=== PATIENT | female | born 1945 | race Caucasian/White ===

== ENCOUNTER → 2017-08-31 17:46 | Outpatient (CLI) | payer MEDICARE, OTHER ==
[2013-01-14 08:21] VITALS: BMI 26.5
== END | disposition home or self-care (01) ==
LOC: D.MAMMO 10:15
DX: Z12.31 Encounter for screening mammogram for malignant neoplasm of breast (principal)

== ENCOUNTER 2018-04-02 12:09 | Emergency (ER) | payer MEDICARE, OTHER ==
[2018-04-02 12:18] VITALS: Ht 162.6 cm
[2018-04-02 12:50] LABS: BASOPHILS 0.2 % (0-2); EOSINOPHILS 0.8 % (0-7); HEMATOCRIT 35.7 % (36.0-48.0); HEMOGLOBIN 11.8 g/dL (12-16); IMMATURE GRANULOCYTES 0.3 % (0-5); LYMPHOCYTES 20.3 % (15-50); MCHC 33.1 g/dL (31.0-37.0); MCV 87.7 fL (80.0-100.0); MEAN PLATELET VOLUME 11.3 fL (7.4-10.4); MONOCYTES 5.8 % (2-11); NEUTROPHILS 72.6 % (40-80); PLATELET COUNT 193 10x3/uL (130-400); RBC 4.07 10x6/uL (4.00-5.40); RDW 14.4 % (11.5-14.5); WBC 6.3 10x3/uL (4.8-10.8)
[2018-04-02 12:54] LABS: INR 2.31 (0.85-1.17); PROTIME 24.7 SECONDS (11.6-15.0)
[2018-04-02 13:01] LABS: ALBUMIN 3.7 g/dL (3.4-5.0); ALKALINE PHOSPHATASE 58 U/L (46-116); ALT (SGPT) 20 U/L (10-68); CALC OSMOLALITY 272 mosm/kg (275-300); CARBON DIOXIDE 26.3 mmol/L (21.0-32.0); CHLORIDE - SERUM 99 mmol/L (98-107); CREATININE - SERUM 0.9 mg/dL (0.6-1.3); GLUCOSE 130 mg/dL (74-106); POTASSIUM - SERUM 3.7 mmol/L (3.5-5.1); PROTEIN - SERUM 7.4 g/dL (6.4-8.2); SODIUM 134 mmol/L (136-145); UREA NITROGEN 20 mg/dL (7-18); eGFR NON AFRICAN AMERICAN 65 mL/min (90-120)
[2018-04-02 13:12] LABS: CREATINE KINASE 73 UL (21-215)
[2018-04-02 13:14] LABS: TROPONIN-I < 0.017 ng/mL (0.000-0.060)
[2018-04-02 14:02] LABS: APPEARANCE CLEAR (CLEAR); BILIRUBIN NEGATIVE (NEGATIVE); COLOR STRAW (YELLOW); GLUCOSE NEGATIVE (NEGATIVE); KETONE NEGATIVE (NEGATIVE); NITRITE NEGATIVE (NEGATIVE); PROTEIN NEGATIVE (NEGATIVE); UROBILINOGEN NORMAL (NORMAL)
[2018-04-02 14:43] VITALS: BP 141/77
== END 2018-04-02 14:43 | disposition home or self-care (01) ==
LOC: D.ER 12:09
PROVIDERS: Family Medicine
DX: R42 Dizziness and giddiness (principal); M54.5 Low back pain; M54.30 Sciatica, unspecified side; E11.9 Type 2 diabetes mellitus without complications; I10 Essential (primary) hypertension

== ENCOUNTER → 2018-09-06 17:51 | Outpatient (CLI) | payer MEDICARE, OTHER ==
[2018-04-02 12:18] VITALS: BMI 26.5
== END | disposition home or self-care (01) ==
LOC: D.MAMMO 09:30
DX: Z12.31 Encounter for screening mammogram for malignant neoplasm of breast (principal)

== ENCOUNTER 2019-06-27 17:35 | Inpatient (IN) | payer MEDICARE, OTHER ==
[~2019-06-27] VITALS: Ht 162.6 cm; Wt 63.6 kg
[2019-06-27 18:20] LABS: BASOPHILS 0.2 % (0-2); EOSINOPHILS 0.7 % (0-7); HEMATOCRIT 36.5 % (36.0-48.0); IMMATURE GRANULOCYTES 0.2 % (0-5); LYMPHOCYTES 23.8 % (15-50); MCH 26.4 pg (26.0-34.0); MCHC 30.1 g/dL (31.0-37.0); MCV 87.7 fL (80.0-100.0); MEAN PLATELET VOLUME 11.6 fL (7.4-10.4); MONOCYTES 6.2 % (2-11); NEUTROPHILS 68.9 % (40-80); RBC 4.16 10x6/uL (4.00-5.40); RDW 20.8 % (11.5-14.5); WBC 5.5 10x3/uL (4.8-10.8)
[2019-06-27 18:22] LABS: PLATELET COUNT 282 10x3/uL (130-400)
[2019-06-27 18:35] LABS: ALBUMIN 3.2 g/dL (3.4-5.0); ALKALINE PHOSPHATASE 57 U/L (46-116); ALT (SGPT) 29 U/L (10-68); APTT 29.4 SECONDS (22.8-39.4); BILIRUBIN - TOTAL 0.65 mg/dL (0.2-1.3); CALC OSMOLALITY 308 mosm/kg (275-300); CARBON DIOXIDE 19.5 mmol/L (21.0-32.0); CHLORIDE - SERUM 105 mmol/L (98-107); CREATININE - SERUM 2.5 mg/dL (0.6-1.3); INR 1.13 (0.85-1.17); POTASSIUM - SERUM 4.1 mmol/L (3.5-5.1); PROTEIN - SERUM 6.7 g/dL (6.4-8.2); SODIUM 139 mmol/L (136-145); UREA NITROGEN 82 mg/dL (7-18); eGFR NON AFRICAN AMERICAN 20 mL/min (90-120)
[2019-06-27 18:36] LABS: D-DIMER-QUANTITATIVE 1.42 ug/mLFEU (0.20-0.54); GLUCOSE 208 mg/dL (74-106)
[2019-06-27 18:47] LABS: CKMB 1.3 U/L (0.0-3.6); CREATINE KINASE 29 UL (21-215); TROPONIN-I 0.044 ng/mL (0.000-0.060)
[2019-06-27 19:02] LABS: PRO BNP 69785 pg/mL (0-450)
[2019-06-27 19:07] VITALS: BP 102/68
[2019-06-27 23:09] VITALS: BP 89/55; BMI 24.0
[2019-06-27] MEDS ORDERED: BETAPACE 120 M120 MG PO (23:30)
[2019-06-27] MEDS ORDERED: WARFARIN SODIUM 5 MG (23:41)
[2019-06-27] MEDS ORDERED: PRAVASTATIN SOD10 MG (23:42)
[2019-06-28] VITALS: BP 89/55
[2019-06-28 04:00] VITALS: BP 133/66; BP 82/52
[2019-06-28 05:06] LABS: BASOPHILS 0.4 % (0-2); EOSINOPHILS 0.2 % (0-7); HEMATOCRIT 34.3 % (36.0-48.0); HEMOGLOBIN 10.3 g/dL (12-16); IMMATURE GRANULOCYTES 0.2 % (0-5); LYMPHOCYTES 27.7 % (15-50); MCH 26.5 pg (26.0-34.0); MCV 88.2 fL (80.0-100.0); MEAN PLATELET VOLUME 11.7 fL (7.4-10.4); MONOCYTES 7.1 % (2-11); NEUTROPHILS 64.4 % (40-80); PLATELET COUNT 252 10x3/uL (130-400); RBC 3.89 10x6/uL (4.00-5.40); RDW 21.1 % (11.5-14.5); WBC 5.1 10x3/uL (4.8-10.8)
[2019-06-28 05:17] LABS: CALCIUM 8.6 mg/dL (8.5-10.1); CARBON DIOXIDE 17.8 mmol/L (21.0-32.0); CREATININE - SERUM 2.4 mg/dL (0.6-1.3); MAGNESIUM - SERUM 2.6 mg/dL (1.8-2.4); PHOSPHOROUS 5.2 mg/dL (2.5-4.9); POTASSIUM - SERUM 3.8 mmol/L (3.5-5.1)
[2019-06-28 09:59] VITALS: BP 81/56
[2019-06-28 12:47] VITALS: BMI 24.0
[2019-06-28 15:09] VITALS: BP 82/55
[2019-06-28 16:00] VITALS: BP 91/57
--- NOTE | 2019-06-28 16:22 | MORECARE ---
CASE MANAGEMENT DISCHARGE SUMMARY PATIENT: JAMIE AUGUSTIN UNIT: [id number] ADM DATE: 06/27/19 AGE: 74 : 43 SEX: F ROOM/BED: D.3020 AUTHOR: FERNANDO PRATT PHYSICIAN: REFERRING PHYSICIAN: JEWELL BAÑUELOS MD DATE OF SERVICE: 06/28/19 Discharge Plan Patient Name: JAMIE AUGUSTIN Facility: [facility]:[place] : 1945 Planned Disposition: Anticipated Discharge Date: Discharge Date: Expected LOS: Initial Reviewer: [email or web address] Initial Review Date: 06/28/2019 Generated: 06/28/19 5:21 pm Patient Name: JAMIE AUGUSTIN Page [id number] at 1622 All edits/amendments must be made on the electronic document DICTATION DATE: 06/28/191620 LITIGATION LEGAL SECRETARY: FERNANDO 06/28/191620 RPT#: [id number] DC DATE: STATUS: ADM IN [facility] [address] [place] [address] END OF REPORT
--- NOTE | 2019-06-28 16:30 | MORECARE ---
CASE MANAGEMENT DISCHARGE SUMMARY PATIENT: JAMIE AUGUSTIN UNIT: [id number] ADM DATE: 06/27/19 AGE: 74 : 43 SEX: F ROOM/BED: D.4220 AUTHOR: FERNANDO PRATT PHYSICIAN: REFERRING PHYSICIAN: JEWELL BAÑUELOS MD DATE OF SERVICE: 06/28/19 Discharge Plan Patient Name: JAMIE AUGUSTIN Facility: [facility]:[place] : 1945 Planned Disposition: Anticipated Discharge Date: Discharge Date: Expected LOS: Initial Reviewer: [email or web address] Initial Review Date: 06/28/2019 Generated: 06/28/19 5:29 pm Comments DCP- Discharge Planning Updated by [email or web address]: Vanessa Dubose on 06/28/19 3:[address] Patient Name: JAMIE AUGUSTIN Admission Status: ER Accout number: [id number] Admission Date: 06-27-2019 : 1945 Admission Diagnosis: Attending: JEWELL BAÑUELOS Current LOS: 1 Anticipated DC Date: Planned Disposition: Primary Insurance: MEDICARE A & B Discharge Planning Comments: CM MET WITH PATIENT ABOUT DC PLANNING/NEEDS. NO NEEDS IDENTIFIED OF TODAY BUT WILL RECHECK PATIENT CLOSER TO DISCHARGE. CM WILL FOLLOW AND ASSIST. R&D Engineer: Vanessa Dubose DCPIA - Discharge Planning Initial Assessment Updated by [email or web address]: Vanessa Dubose on 06/28/19 4:22 pm * Is the patient Alert and Oriented? Yes * PCP BRENDA * Pharmacy [facility] [address] * Preadmission Environment Home Alone * ADLs Independent * List name and contact numbers for known caregivers / representatives who currently or will assist patient after discharge: JUSTICE CRUMP, * Community resources currently utilized None * Additional services required to return to the preadmission environment? No * Can the patient safely return to the preadmission environment? Yes * Has this patient been hospitalized within the prior 30 days at any hospital? Yes Last DP export: 06/28/19 3:22 Patient Name: JAMIE AUGUSTIN Page [id number] at 1630 All edits/amendments must be made on the electronic document DICTATION DATE: 06/28/191628 MAIL WEIGHER: FERNANDO 06/28/191628 RPT#: [id number] DC DATE: STATUS: ADM IN [facility] [address] [place] [address] END OF REPORT
[2019-06-28 20:00] VITALS: BP 83/59
[2019-06-29] VITALS (7 sets, daily range): BP systolic 79–106; BP diastolic 37–67
[2019-06-29 04:49] LABS: BASOPHILS 0.5 % (0-2); EOSINOPHILS 1.2 % (0-7); HEMATOCRIT 35.3 % (36.0-48.0); HEMOGLOBIN 10.5 g/dL (12-16); IMMATURE GRANULOCYTES 0.3 % (0-5); LYMPHOCYTES 28.5 % (15-50); MCH 26.7 pg (26.0-34.0); MCHC 29.7 g/dL (31.0-37.0); MCV 89.8 fL (80.0-100.0); MEAN PLATELET VOLUME 11.4 fL (7.4-10.4); NEUTROPHILS 61.5 % (40-80); PLATELET COUNT 281 10x3/uL (130-400); RBC 3.93 10x6/uL (4.00-5.40); RDW 21.4 % (11.5-14.5)
[2019-06-29 04:58] LABS: WBC 6.6 10x3/uL (4.8-10.8)
[2019-06-29 05:07] LABS: ANION GAP 15.4 mmol/L (8-16); CALCIUM 8.6 mg/dL (8.5-10.1); CARBON DIOXIDE 18.9 mmol/L (21.0-32.0); MAGNESIUM - SERUM 2.7 mg/dL (1.8-2.4); POTASSIUM - SERUM 4.3 mmol/L (3.5-5.1)
[2019-06-29 05:14] LABS: CREATININE - SERUM 3.1 mg/dL (0.6-1.3)
[2019-06-30 04:00] VITALS: BP 85/52
[2019-06-30 05:17] LABS: BASOPHILS 0.7 % (0-2); EOSINOPHILS 1.5 % (0-7); HEMOGLOBIN 10.6 g/dL (12-16); IMMATURE GRANULOCYTES 0.3 % (0-5); LYMPHOCYTES 27.8 % (15-50); MCH 26.4 pg (26.0-34.0); MCHC 29.4 g/dL (31.0-37.0); MCV 89.6 fL (80.0-100.0); MEAN PLATELET VOLUME 11.5 fL (7.4-10.4); MONOCYTES 8.1 % (2-11); NEUTROPHILS 61.6 % (40-80); PLATELET COUNT 295 10x3/uL (130-400); RBC 4.02 10x6/uL (4.00-5.40); RDW 21.8 % (11.5-14.5)
[2019-06-30 05:32] LABS: ANION GAP 12.8 mmol/L (8-16); CALCIUM 8.2 mg/dL (8.5-10.1); CARBON DIOXIDE 19.4 mmol/L (21.0-32.0); CREATININE - SERUM 3.1 mg/dL (0.6-1.3); MAGNESIUM - SERUM 2.5 mg/dL (1.8-2.4); POTASSIUM - SERUM 4.2 mmol/L (3.5-5.1)
[2019-06-30 08:56] VITALS: BP 99/67
[2019-06-30 15:53] VITALS: Ht 162.6 cm; Wt 63.6 kg
--- NOTE | 2019-06-30 16:28 | MORECARE ---
CASE MANAGEMENT DISCHARGE SUMMARY PATIENT: JAMIE AUGUSTIN UNIT: [id number] ADM DATE: 06/27/19 AGE: 74 : 43 SEX: F ROOM/BED: D.0899 AUTHOR: TERENCE,DOC PHYSICIAN: REFERRING PHYSICIAN: JEWELL BAÑUELOS MD DATE OF SERVICE: 06/30/19 Discharge Plan Patient Name: JAMIE AUGUSTIN Facility: [facility]:[place] : 1945 Planned Disposition: Anticipated Discharge Date: Discharge Date: Expected LOS: Initial Reviewer: [email or web address] Initial Review Date: 06/28/2019 Generated: 06/30/19 5:28 pm Comments DCP- Discharge Planning Updated by [email or web address]: Becky Ro on 06/30/19 3:[address] CM received an order from nurse on [employer] 2 for patient transfer to [facility]. CM called the [facility], spoke with Craig, provided required information and faxed Face Sheet to #[phone]. Instructed Craig to contact Med 2 @[phone] with determination. DCP- Discharge Planning Updated by [email or web address]: Vanessa Dubose on 06/28/19 3:[address] Patient Name: JAMIE AUGUSTIN Admission Status: ER Accout number: [id number] Admission Date: 06-27-2019 : 1945 Admission Diagnosis: Attending: JEWELL BAÑUELOS Current LOS: 1 Anticipated DC Date: Planned Disposition: Primary Insurance: MEDICARE A & B Discharge Planning Comments: CM MET WITH PATIENT ABOUT DC PLANNING/NEEDS. NO NEEDS IDENTIFIED OF TODAY BUT WILL RECHECK PATIENT CLOSER TO DISCHARGE. CM WILL FOLLOW AND ASSIST. Electric Motor Assembler: Vanessa Dubose DCPIA - Discharge Planning Initial Assessment Updated by [email or web address]: Vanessa Dubose on 06/28/19 4:22 pm * Is the patient Alert and Oriented? Yes * PCP BRENDA * Pharmacy [facility] [address] * Preadmission Environment Home Alone * ADLs Independent * List name and contact numbers for known caregivers / representatives who currently or will assist patient after discharge: JUSTICE CRUMP, * Community resources currently utilized None * Additional services required to return to the preadmission environment? No * Can the patient safely return to the preadmission environment? Yes * Has this patient been hospitalized within the prior 30 days at any hospital? Yes Last DP export: 06/28/19 3:30 Patient Name: JAMIE AUGUSTIN Page [id number] at 1628 All edits/amendments must be made on the electronic document DICTATION DATE: 06/30/191627 ADVISORY SERVICES ASSOCIATE: FERNANDO 06/30/191627 RPT#: [id number] DC DATE: STATUS: ADM IN [facility] [address] [place] [address] END OF REPORT
--- NOTE | 2019-06-30 16:53 | MORECARE ---
CASE MANAGEMENT DISCHARGE SUMMARY PATIENT: JAMIE AUGUSTIN UNIT: [id number] ADM DATE: 06/27/19 AGE: 74 : 43 SEX: F ROOM/BED: D.4536 AUTHOR: TERENCE,DOC PHYSICIAN: REFERRING PHYSICIAN: JEWELL BAÑUELOS MD DATE OF SERVICE: 06/30/19 Discharge Plan Patient Name: JAMIE AUGUSTIN Facility: [facility]:[place] : 1945 Planned Disposition: Anticipated Discharge Date: Discharge Date: Expected LOS: Initial Reviewer: [email or web address] Initial Review Date: 06/28/2019 Generated: 06/30/19 5:53 pm Comments DCP- Discharge Planning Updated by [email or web address]: Becky Ro on 06/30/19 3:[address] CM received an order from nurse on [employer] 2 for patient transfer to [facility]. CM called the [facility] Transfer [facility], spoke with Craig, provided required information, plus Dr. Coppola name and faxed Face Sheet to #[phone]. Instructed Craig to contact Med 2 @[phone] with determination. DCP- Discharge Planning Updated by [email or web address]: Vanessa Dubose on 06/28/19 3:[address] Patient Name: JAMIE AUGUSTIN Admission Status: ER Accout number: [id number] Admission Date: 06-27-2019 : 1945 Admission Diagnosis: Attending: JEWELL BAÑULEOS Current LOS: 1 Anticipated DC Date: Planned Disposition: Primary Insurance: MEDICARE A & B Discharge Planning Comments: CM MET WITH PATIENT ABOUT DC PLANNING/NEEDS. NO NEEDS IDENTIFIED OF TODAY BUT WILL RECHECK PATIENT CLOSER TO DISCHARGE. CM WILL FOLLOW AND ASSIST. Product Marketer: Vanessa Dubose DCPIA - Discharge Planning Initial Assessment Updated by [email or web address]: Vanessa Dubose on 06/28/19 4:22 pm * Is the patient Alert and Oriented? Yes * PCP BRENDA * Pharmacy [facility] [address] * Preadmission Environment Home Alone * ADLs Independent * List name and contact numbers for known caregivers / representatives who currently or will assist patient after discharge: THERON, JUSTICE, * Community resources currently utilized None * Additional services required to return to the preadmission environment? No * Can the patient safely return to the preadmission environment? Yes * Has this patient been hospitalized within the prior 30 days at any hospital? Yes Last DP export: 06/30/19 3:28 Patient Name: JAMIE AUGUSTIN Page [id number] at 1653 All edits/amendments must be made on the electronic document DICTATION DATE: 06/30/191652 CHARGEMASTER ANALYST: FERNANDO 06/30/191652 RPT#: [id number] DC DATE: STATUS: ADM IN [facility] [address] [place] [address] END OF REPORT
[2019-06-30] MEDS ORDERED: XARELTO15 MG PO (18:13)
[2019-06-30 18:18] VITALS: BP 105/99
--- NOTE | 2019-07-01 08:10 | MORECARE ---
CASE MANAGEMENT DISCHARGE SUMMARY PATIENT: JAMIE AUGUSTIN UNIT: [id number] ADM DATE: 06/27/19 AGE: 74 : 43 SEX: F ROOM/BED: D.5724 AUTHOR: TERENCE,DOC PHYSICIAN: REFERRING PHYSICIAN: JEWELL BAÑUELOS MD DATE OF SERVICE: 07/01/19 Discharge Plan Patient Name: JAIME AUGUSTIN Facility: [facility]:[place] : 1945 Planned Disposition: Acute Care Hospital Anticipated Discharge Date: 06/30/19 Discharge Date: 06/30/2019 Expected LOS: 3 Initial Reviewer: [email or web address] Initial Review Date: 06/28/2019 Generated: 07/01/19 9:10 am Comments DCP- Discharge Planning Updated by [email or web address]: Becky Ro on 06/30/19 3:[address] CM received an order from nurse on [employer] 2 for patient transfer to [facility]. CM called the [facility], spoke with Craig, provided required information, plus Dr. Coppola name and faxed Face Sheet to #[phone]. Instructed Craig to contact Med 2 @[phone] with determination. DCP- Discharge Planning Updated by [email or web address]: Vanessa Dubose on 06/28/19 3:[address] Patient Name: JAMIE AUGUSTIN Admission Status: ER Accout number: [id number] Admission Date: 06-27-2019 : 1945 Admission Diagnosis: Attending: JEWELL BAÑUELOS Current LOS: 1 Anticipated DC Date: Planned Disposition: Primary Insurance: MEDICARE A & B Discharge Planning Comments: CM MET WITH PATIENT ABOUT DC PLANNING/NEEDS. NO NEEDS IDENTIFIED OF TODAY BUT WILL RECHECK PATIENT CLOSER TO DISCHARGE. CM WILL FOLLOW AND ASSIST. Recreation Program Specialist: Vanessa Dubose DCPIA - Discharge Planning Initial Assessment Updated by [email or web address]: Vanessa Dubose on 06/28/19 4:22 pm * Is the patient Alert and Oriented? Yes * PCP BRENDA * Pharmacy [facility] [address] * Preadmission Environment Home Alone * ADLs Independent * List name and contact numbers for known caregivers / representatives who currently or will assist patient after discharge: JUSTICE CRUMP, * Community resources currently utilized None * Additional services required to return to the preadmission environment? No * Can the patient safely return to the preadmission environment? Yes * Has this patient been hospitalized within the prior 30 days at any hospital? Yes Last DP export: 06/30/19 3:53 Patient Name: JAMIE AUGUSTIN Page [id number] at 0810 All edits/amendments must be made on the electronic document DICTATION DATE: 07/01/19809 FOOD AIDE: FERNANDO 07/01/19809 RPT#: [id number] DC DATE:06/30/19 STATUS: DIS IN [facility] [address] [place] [address] END OF REPORT
== END 2019-06-30 20:18 | disposition short-term general hospital (02) | DRG 175 ==
LOC: D.ER 17:35 → D.M2 21:13
PROVIDERS: Family Medicine; ADMIT Emergency Medicine; ATTEND Emergency Medicine
DX: I26.99 Other pulmonary embolism without acute cor pulmonale (principal); R57.0 Cardiogenic shock; I13.0 Hypertensive heart and chronic kidney disease with heart failure and stage 1 through stage 4 chronic kidney disease, or unspecified chronic kidney disease; I48.20 Chronic atrial fibrillation, unspecified; I42.9 Cardiomyopathy, unspecified; N17.9 Acute kidney failure, unspecified; E11.22 Type 2 diabetes mellitus with diabetic chronic kidney disease; N18.9 Chronic kidney disease, unspecified; I50.9 Heart failure, unspecified; Z79.01 Long term (current) use of anticoagulants; Z86.73 Personal history of transient ischemic attack (TIA), and cerebral infarction without residual deficits; M21.371 Foot drop, right foot; I25.10 Atherosclerotic heart disease of native coronary artery without angina pectoris; I35.0 Nonrheumatic aortic (valve) stenosis; I95.9 Hypotension, unspecified